=== PATIENT | female | born 1990 | race Caucasian/White ===

== ENCOUNTER 2018-12-22 12:59 | Inpatient (IN) | payer OTHER ==
[2018-12-22 14:13] LABS: Urine Appearance Clear; Urine Bilirubin Negative (Negative); Urine Blood Negative (Negative); Urine Color Straw; Urine Glucose Negative (Negative); Urine Ketones Negative (Negative); Urine Nitrite Negative (Negative); Urine Protein Negative (Negative); Urine Specific Gravity 1.006 (1.010-1.030); Urine Urobilinogen Negative (Negative)
[2018-12-22 14:19] LABS: ABS Eosinophils 0.1 10^3/ul (0-0.6); ABS Lymphocytes 2.2 10^3/ul (1.0-4.8); ABS Monocytes 0.3 10^3/ul (0-0.8); Eosinophil % 1.4 %; Hematocrit 35 % (35-47); Hemoglobin 12.1 g/dL (12.0-16.0); Lymphocyte % 47.7 %; Mean Corpuscular HGB Conc 34 g/dL (31-36); Mean Corpuscular Hemoglobin 33 pg (27-31); Mean Corpuscular Volume 97 fL (80-97); Mean Platelet Volume 9.5 fL (7.4-10.4); Platelet Count 153 10^3/uL (150-450); Red Blood Count 3.64 10^6 /uL (3.70-4.87); Red Cell Distribution Width 13 % (10.5-15); White Blood Count 4.7 10^3/uL (3.5-10.8)
[2018-12-22 14:29] LABS: Urine Benzodiazepine Screen None Detected (None Detect); Urine Opiates Screen None Detected (None Detect)
[2018-12-22 14:40] LABS: ALT 8 U/L (7-52); AST 17 U/L (13-39); Albumin 4.2 g/dL (3.2-5.2); Albumin/Globulin Ratio 2.1 (1-3); Alkaline Phosphatase 43 U/L (34-104); Anion Gap 5 mmol/L (2-11); Blood Urea Nitrogen 9 mg/dL (6-24); CO2 Carbon Dioxide 26 mmol/L (22-32); Calcium 9.3 mg/dL (8.6-10.3); Chloride 108 mmol/L (101-111); EGFR African American 177.8 (>60); EGFR Non-African American 146.9 (>60); Glucose 89 mg/dL (70-100); Potassium 4.3 mmol/L (3.5-5.0); Sodium 139 mmol/L (135-145); Total Protein 6.2 g/dL (6.4-8.9)
[2018-12-22 15:07] LABS: Acetaminophen < 15 mcg/mL; Alcohol < 10 mg/dL (<10); Salicylate < 2.50 mg/dL (<30)
[2018-12-22 15:20] LABS: TSH (Thyroid Stimulating Horm) 1.41 mcIU/mL (0.34-5.60)
[2018-12-22] MEDS ORDERED: Haloperidol TAB* 5 MG PO PRN (16:40)
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
[2018-12-22] MEDS ORDERED: Ketorolac INJ* 60 MG/2 ML VIAL IM ONE (17:35)
[2018-12-22] MEDS ORDERED: Al Hydrox/Mg Hydrox/Simet LIQ* 30 ML UDC PO PRN (19:55)
[2018-12-22] MEDS: LORazepam TAB(*) 1 MG PO PRN (20:56)
[2018-12-22] MEDS: Divalproex ER TAB(*) 500 MG PO SCH (21:23)
[2018-12-22] MEDS: levETIRAcetam TAB* 500 MG PO SCH (21:23)
[2018-12-22] MEDS: Nicotine Patch Removal NOTE PATCH OFF SCH (21:24)
[2018-12-23] MEDS: Nicotine PATCH 21 MG/24 HR* PATCH TRANSDERM SCH (10:07)
[2018-12-23] MEDS: LORazepam TAB(*) 1 MG PO PRN (10:12)
[2018-12-23] MEDS: levETIRAcetam TAB* 500 MG PO SCH (10:12)
[2018-12-23] MEDS: Vitamin THERAPEUTIC TAB PO SCH (10:13)
[2018-12-23] MEDS: Divalproex ER TAB(*) 500 MG PO SCH (10:14)
--- NOTE | 2018-12-23 15:59 | PN ---
BSU: Group Therapy Note - Service Type Service Type: [id number] Group Psychotherapy - Group Participation Patient Participating in Group: Yes Level of Group Participation: Attentive, Non-participatory Relatedness to Group: Paranoid - Gina was quiet but attentive. - Additional Group Comments Group Comments: Gina was attentive and quiet. She tolerated being in the group for a while, but later on, perhaps due to another group member whose behavior was difficult to tolerate, left early.
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
[2018-12-23] MEDS: Ibuprofen TAB* 600 MG PO PRN (19:20)
[2018-12-23] MEDS: Nicotine Patch Removal NOTE PATCH OFF SCH (19:22)
[2018-12-23] MEDS: risperiDONE-M * 1 MG TAB.ORADIS PO PRN (20:06)
[2018-12-24] MEDS: Nicotine PATCH 21 MG/24 HR* PATCH TRANSDERM SCH ×2 (06:15→09:01)
[2018-12-24] MEDS: Ibuprofen TAB* 600 MG PO PRN (06:15)
[2018-12-24 08:03] LABS: HDL Cholesterol 62.9 mg/dL
[2018-12-24] MEDS: levETIRAcetam TAB* 500 MG PO SCH (08:59)
[2018-12-24] MEDS: Vitamin THERAPEUTIC TAB PO SCH (09:00)
[2018-12-24] MEDS: Divalproex ER TAB(*) 500 MG PO SCH (09:00)
[2018-12-24] MEDS: diPHENhydraMINE PO* 50 MG PO PRN (10:30)
[2018-12-24] MEDS: traMADol TAB* 50 MG PO PRN (10:31)
[2018-12-24] MEDS: Acetaminophen TAB* 325 MG PO PRN (13:09)
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
[2018-12-24] MEDS: LORazepam TAB(*) 1 MG PO PRN (16:20)
[2018-12-24] MEDS: Nicotine Patch Removal NOTE PATCH OFF SCH (20:49)
[2018-12-24] MEDS ORDERED: risperiDONE TAB* 1 MG PO SCH (21:00)
[2018-12-25] MEDS: Ibuprofen TAB* 600 MG PO PRN ×2 (01:35→08:51)
[2018-12-25] MEDS: LORazepam TAB(*) 1 MG PO PRN ×2 (02:05→10:00)
[2018-12-25] MEDS: traMADol TAB* 50 MG PO PRN (02:05)
[2018-12-25] MEDS: Divalproex ER TAB(*) 500 MG PO SCH (08:22)
[2018-12-25] MEDS: levETIRAcetam TAB* 500 MG PO SCH ×2 (08:22→21:55)
[2018-12-25] MEDS: Vitamin THERAPEUTIC TAB PO SCH (08:23)
[2018-12-25] MEDS: Nicotine PATCH 21 MG/24 HR* PATCH TRANSDERM SCH (08:46)
--- NOTE | 2018-12-25 13:54 | PN ---
Subjective - Subjective Date of Service: 12/25/18 Service Type: [id number] Hosp care 25 min moderate complexity Subjective: Gina remains disorganized. She seems confused about the situation she is in and does not respond logically to having things explained to her. She would like to be discharged, but she is not at the baseline that was established when I spoke to her adoptive mother, Glendy. Although Glendy indicated that Gina behaves in a manner younger than her age, Gina is behaving in a childish way that includes lack of comprehension of situation and inability to follow along with a conversation. Gina came in on doses of Keppra and Depakote that are different from what Glendy indicated that they were listed on the bottle. Keppra she is reported to take 500 mg QAM and 1000 mg at Bedtime. Depakote ER 500 mg BID is also prescribed. There is a note in the ED chart that she has lowered the Depakote due to having toxic levels. When a level was obtained here, it was approximately 60, so the 500 mg dose once a day is continued. It was unclear how long she had not been on Keppra, so a quick titration up was started today. Objective - General Observations Appearance: Disheveled Appears Stated Age: Yes Stature: Thin Posture: Tense Eye Contact: Intermittent Behavior/Activity: Peculiar - Interaction Observations Attitude Towards Examiner: Anxious, Confused, Demanding, Mistrustful Stated Mood: Dysphoric, Anxious, Angry Affect: Labile Speech Pattern/Tone: Clear, Rambling Thought Process: Disorganized, Loose Associations, Tangential Perception: WNL Thought Content: Preoccupation/Ruminations Hallucination Type: Denies Delusion Type: Denies - Cognitive Function Orientation: Person, Place, Time Level of Consciousness: Awake, Alert, Appropriate Cognition: Impaired Cognition, Impaired Attention/Concentration Estimated Intelligence: Borderline Range Insight: Difficulty Acknowledging Presence of Psyciatric Problems Judgment Within Normal Limits: No Ability to Make Reasonable Decisions: Serverely Impaired - Medication Compliance Cooperative with Inpatient Medication Regimen: Yes - Group Participation Participates in Group Activities: Partial Assessment - Assessment Merits Inpatient Hospitalization: For Immediate Safety Clinical Impression: Gina is a 28-year-old white woman with no history of mental illness who comes to the hospital following bizarre thoughts and high paranoia including thoughts that her will assault her and she must hide from him. Plan - Plan Treatment Plan: Name: GINA JARAMILLO Birthdate: 1990 [id number] Gina is on increased Risperdal tonight. She has not made progress since her admission. Allowing Gina to have time to clear will be important. Continued Medication Management: Different Medication Medications: Current Medications Acetaminophen (Tylenol Tab*) 650 mg PO Q4H PRN PRN Reason: PAIN or TEMP > 101 F Last Admin: 12/24/18 13:09 Dose: 650 mg Al Hydrox/Mg Hydrox/Simethicone (Maalox Plus*) 30 ml PO Q4H PRN PRN Reason: INDIGESTION Diphenhydramine HCl (Benadryl Po*) 50 mg PO Q6H PRN PRN Reason: ITCHING Last Admin: 12/24/18 10:30 Dose: 50 mg Divalproex Sodium (Depakote Er Tab(*)) 500 mg PO DAILY [facility] Last Admin: 12/25/18 08:22 Dose: 500 mg Hydroxyzine HCl (Atarax Tab*) 50 mg PO Q4H PRN PRN Reason: Anxiety/agitation/insomnia Ibuprofen (Motrin Tab*) 600 mg PO Q6H PRN PRN Reason: PAIN Last Admin: 12/25/18 08:51 Dose: 600 mg Levetiracetam (Keppra Tab*) 500 mg PO BID [facility] Stop: 12/28/18 00:30 Levetiracetam (Keppra Tab*) 500 mg PO DAILY [facility] Levetiracetam (Keppra Tab*) 1,000 mg PO BEDTIME [facility] Lorazepam (Ativan Tab(*)) 1 mg PO Q6H PRN PRN Reason: AGITATION Last Admin: 12/25/18 10:00 Dose: 1 mg Multivitamins (Theragran Tab*) 1 tab PO DAILY [facility] Last Admin: 12/25/18 08:23 Dose: 1 tab Nicotine (Nicotine Patch 21 Mg/24 Hr*) 1 patch TRANSDERM DAILY [facility] Last Admin: 12/25/18 08:46 Dose: Not Given Nicotine Polacrilex (Nicotine Gum*) 2 mg PO Q2H PRN PRN Reason: CRAVINGS Pharmacy Profile Note (Nicotine Patch Removal Note*) 1 note PATCH OFF 2100 [facility] Last Admin: 12/24/18 20:49 Dose: 1 note Risperidone (Risperdal-M Tab *) 2 mg PO Q6H PRN; Protocol PRN Reason: AGITATION Last Admin: 12/23/18 20:06 Dose: 2 mg Risperidone (Risperdal*) 2 mg PO BEDTIME [facility] Tramadol HCl (Ultram*) 50 mg PO Q6H PRN PRN Reason: PAIN Last Admin: 12/25/18 02:05 Dose: 50 mg - Discharge Plan Discharge Plan: Outpatient Follow Up
[2018-12-25] MEDS: hydrOXYzine HCL TAB* 50 MG PO PRN ×2 (15:26→21:55)
[2018-12-25] MEDS: Nicotine PATCH 7 MG/24 HR* PATCH TRANSDERM SCH (15:27)
[2018-12-25] MEDS: Nicotine Patch Removal NOTE FOLLOW UP SCH (21:57)
[2018-12-25] MEDS: risperiDONE TAB* 1 MG PO SCH (21:57)
[2018-12-26] MEDS: Divalproex ER TAB(*) 500 MG PO SCH (07:53)
[2018-12-26] MEDS: levETIRAcetam TAB* 500 MG PO SCH ×2 (07:53→19:54)
[2018-12-26] MEDS: Acetaminophen TAB* 325 MG PO PRN (08:43)
[2018-12-26] MEDS: Nicotine PATCH 7 MG/24 HR* PATCH TRANSDERM SCH ×2 (08:55→10:05)
[2018-12-26] MEDS: Vitamin THERAPEUTIC TAB PO SCH (08:55)
[2018-12-26] MEDS: Ibuprofen TAB* 600 MG PO PRN (08:56)
[2018-12-26] MEDS: traMADol TAB* 50 MG PO PRN (15:19)
[2018-12-26] MEDS: Nicotine Patch Removal NOTE FOLLOW UP SCH (20:40)
[2018-12-26] MEDS: risperiDONE TAB* 1 MG PO SCH (20:43)
[2018-12-27] MEDS: hydrOXYzine HCL TAB* 50 MG PO PRN (04:24)
[2018-12-27] MEDS: traMADol TAB* 50 MG PO PRN ×2 (08:39→16:00)
[2018-12-27] MEDS: levETIRAcetam TAB* 500 MG PO SCH ×2 (08:40→21:04)
[2018-12-27] MEDS: Divalproex ER TAB(*) 500 MG PO SCH (08:40)
[2018-12-27] MEDS: Nicotine PATCH 7 MG/24 HR* PATCH TRANSDERM SCH (08:41)
[2018-12-27] MEDS: Vitamin THERAPEUTIC TAB PO SCH (08:42)
[2018-12-27] MEDS: LORazepam TAB(*) 1 MG PO PRN (15:30)
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
[2018-12-27] MEDS: risperiDONE TAB* 1 MG PO SCH (21:05)
[2018-12-27] MEDS: Nicotine Patch Removal NOTE FOLLOW UP SCH (21:05)
[2018-12-28] MEDS: Divalproex ER TAB(*) 500 MG PO SCH (08:47)
[2018-12-28] MEDS: Vitamin THERAPEUTIC TAB PO SCH (08:47)
[2018-12-28] MEDS: Nicotine PATCH 7 MG/24 HR* PATCH TRANSDERM SCH (08:48)
[2018-12-28] MEDS: levETIRAcetam TAB* 500 MG PO SCH ×2 (08:48→21:42)
[2018-12-28] MEDS: LORazepam TAB(*) 1 MG PO PRN (09:49)
[2018-12-28] MEDS ORDERED: chlorproMAZINE TAB* 100 MG ONE (10:26)
[2018-12-28] MEDS ORDERED: chlorproMAZINE TAB* 100 MG PO ONE (12:29)
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
[2018-12-28] MEDS: risperiDONE-M * 1 MG TAB.ORADIS PO PRN (15:50)
[2018-12-28] MEDS: hydrOXYzine HCL TAB* 50 MG PO PRN (15:50)
[2018-12-28] MEDS: traMADol TAB* 50 MG PO PRN (19:23)
[2018-12-28] MEDS: risperiDONE TAB* 1 MG PO SCH (21:42)
[2018-12-28] MEDS: Nicotine Patch Removal NOTE FOLLOW UP SCH (22:33)
[2018-12-29] MEDS: risperiDONE-M * 1 MG TAB.ORADIS PO PRN (06:39)
[2018-12-29] MEDS: hydrOXYzine HCL TAB* 50 MG PO PRN (06:39)
[2018-12-29] MEDS: Nicotine PATCH 7 MG/24 HR* PATCH TRANSDERM SCH (09:27)
[2018-12-29] MEDS: Vitamin THERAPEUTIC TAB PO SCH ×2 (09:28→09:30)
[2018-12-29] MEDS: Divalproex ER TAB(*) 500 MG PO SCH (09:28)
[2018-12-29] MEDS: levETIRAcetam TAB* 500 MG PO SCH ×2 (09:28→19:48)
[2018-12-29] MEDS: risperiDONE TAB* 1 MG PO SCH ×2 (11:13→19:49)
[2018-12-29] MEDS ORDERED: Bisacodyl EC TAB* 5 MG PO ONE (13:12)
--- NOTE | 2018-12-29 15:49 | PN ---
Subjective - Subjective Date of Service: 12/29/18 Service Type: [id number] Hosp care 25 min moderate complexity Subjective: Gina is less disorganized, but the first thing she said today in reply to " How are you?" was "I'm getting rid of pinks," indicating a jacket she decided she didn't like. She was not able to indicate that it was the jacket she was getting rid of, only the color. Gina is a little irritable and paranoid, being annoyed by another patient who she thinks is spying on her while bouncing a ball. Gina's solution to this is to get a fidget spinner. She had odd thoughts regarding what her bio mother might have done with her own fidget spinners at home. In short, Gina is pleasant and eager to spend time chatting with people, but is also strange and suspicious at times as well as disorganized in thinking. Objective - General Observations Appearance: Disheveled Appears Stated Age: Yes Stature: Thin Posture: WNL Eye Contact: Average Behavior/Activity: Peculiar - Interaction Observations Attitude Towards Examiner: Cooperative, Mistrustful Stated Mood: Euthymic Affect: Full Speech Pattern/Tone: Clear Thought Process: Disorganized, Filght of Ideas Perception: WNL Thought Content: Paranoid Hallucination Type: Denies Delusion Type: Denies, Persecution, Somatic - Cognitive Function Orientation: A&O x 4 Level of Consciousness: Awake, Alert, Appropriate Cognition: Impaired Cognition, Impaired Ability to Abstract Estimated Intelligence: Borderline Range Insight: Difficulty Acknowledging Presence of Psyciatric Problems Judgment Within Normal Limits: No Ability to Make Reasonable Decisions: Moderately Impaired - Medication Compliance Cooperative with Inpatient Medication Regimen: Yes - Group Participation Participates in Group Activities: Yes Assessment - Assessment Merits Inpatient Hospitalization: For Immediate Safety Inpatient DSM-V Dx: F29 Clinical Impression: Gina is a 28-year-old white woman with no history of mental illness who comes to the hospital following bizarre thoughts and high paranoia including thoughts that her will assault her and she must hide from him. Ongoing impairing psychotic symptoms. Plan - Plan Treatment Plan: Name: GINA JARAMILLO Birthdate: 1990 [id number] Gina is on increased Risperdal tonight. She has not made progress since her admission. Allowing Gina to have time to clear will be important. 12/29/18 Gina's Risperdal is increasing today to 1 mg QAM and 2 mg QHS. Gina is agreeable. A Depakote level will be obtained tomorrow. Continued Medication Management: Different Medication Medications: Current Medications Acetaminophen (Tylenol Tab*) 650 mg PO Q4H PRN PRN Reason: PAIN or TEMP > 101 F Last Admin: 12/26/18 08:43 Dose: 650 mg Al Hydrox/Mg Hydrox/Simethicone (Maalox Plus*) 30 ml PO Q4H PRN PRN Reason: INDIGESTION Diphenhydramine HCl (Benadryl Po*) 50 mg PO Q6H PRN PRN Reason: ITCHING Last Admin: 12/24/18 10:30 Dose: 50 mg Divalproex Sodium (Depakote Er Tab(*)) 500 mg PO DAILY [facility] Last Admin: 12/29/18 09:28 Dose: 500 mg Hydroxyzine HCl (Atarax Tab*) 50 mg PO Q4H PRN PRN Reason: Anxiety/agitation/insomnia Last Admin: 12/29/18 06:39 Dose: 50 mg Ibuprofen (Motrin Tab*) 600 mg PO Q6H PRN PRN Reason: PAIN Last Admin: 12/26/18 08:56 Dose: 600 mg Levetiracetam (Keppra Tab*) 500 mg PO DAILY [facility] Last Admin: 12/29/18 09:28 Dose: 500 mg Levetiracetam (Keppra Tab*) 1,000 mg PO BEDTIME [facility] Last Admin: 12/28/18 21:42 Dose: 1,000 mg Lorazepam (Ativan Tab(*)) 1 mg PO Q6H PRN PRN Reason: AGITATION Last Admin: 12/28/18 09:49 Dose: 1 mg Multivitamins (Theragran Tab*) 1 tab PO DAILY [facility] Last Admin: 12/29/18 09:30 Dose: Not Given Nicotine (Nicotine Patch 7 Mg/24 Hr*) 1 patch TRANSDERM DAILY [facility] Last Admin: 12/29/18 09:27 Dose: Not Given Nicotine Polacrilex (Nicotine Gum*) 2 mg PO Q2H PRN PRN Reason: CRAVINGS Pharmacy Profile Note (Nicotine Patch Removal Note*) 1 note FOLLOW UP 2100 [facility] Last Admin: 12/28/18 22:33 Dose: 1 note Risperidone (Risperdal-M Tab *) 2 mg PO Q6H PRN; Protocol PRN Reason: AGITATION Last Admin: 12/29/18 06:39 Dose: 2 mg Risperidone (Risperdal*) 2 mg PO BEDTIME [facility] Last Admin: 12/28/18 21:42 Dose: 2 mg Risperidone (Risperdal*) 1 mg PO DAILY [facility] Last Admin: 12/29/18 11:13 Dose: 1 mg Tramadol HCl (Ultram*) 50 mg PO Q6H PRN PRN Reason: PAIN Last Admin: 12/28/18 19:23 Dose: 50 mg - Discharge Plan Discharge Plan: Outpatient Follow Up
[2018-12-29] MEDS: Nicotine Patch Removal NOTE FOLLOW UP SCH (19:49)
[2018-12-29] MEDS: diPHENhydraMINE PO* 50 MG PO PRN (21:39)
[2018-12-30] MEDS: Ibuprofen TAB* 600 MG PO PRN (01:27)
[2018-12-30] MEDS: hydrOXYzine HCL TAB* 50 MG PO PRN (01:27)
[2018-12-30] MEDS ORDERED: Docusate CAP* 100 MG PO PRN (10:03)
[2018-12-30] MEDS: levETIRAcetam TAB* 500 MG PO SCH ×2 (10:04→20:03)
[2018-12-30] MEDS: Divalproex ER TAB(*) 500 MG PO SCH (10:04)
[2018-12-30] MEDS: Vitamin THERAPEUTIC TAB PO SCH ×2 (10:04→10:06)
[2018-12-30] MEDS: risperiDONE TAB* 1 MG PO SCH ×2 (10:04→22:03)
[2018-12-30] MEDS: Nicotine PATCH 7 MG/24 HR* PATCH TRANSDERM SCH (10:06)
[2018-12-30] MEDS: Divalproex ER TAB(*) 250 MG PO SCH (11:59)
[2018-12-30] MEDS: Acetaminophen TAB* 325 MG PO PRN ×2 (15:24→20:05)
[2018-12-30] MEDS: Nicotine Patch Removal NOTE FOLLOW UP SCH (20:36)
[2018-12-31] MEDS: Ibuprofen TAB* 600 MG PO PRN (04:45)
[2018-12-31] MEDS: Acetaminophen TAB* 325 MG PO PRN ×2 (07:29→17:47)
[2018-12-31] MEDS: Divalproex ER TAB(*) 500 MG PO SCH (08:49)
[2018-12-31] MEDS: Divalproex ER TAB(*) 250 MG PO SCH (08:49)
[2018-12-31] MEDS: Vitamin THERAPEUTIC TAB PO SCH (08:50)
[2018-12-31] MEDS: risperiDONE TAB* 1 MG PO SCH ×2 (08:50→21:16)
[2018-12-31] MEDS: levETIRAcetam TAB* 500 MG PO SCH ×2 (08:50→21:16)
[2018-12-31] MEDS: Nicotine PATCH 7 MG/24 HR* PATCH TRANSDERM SCH (08:52)
[2018-12-31] MEDS: traMADol TAB* 50 MG PO PRN (20:32)
[2018-12-31] MEDS: Nicotine Patch Removal NOTE FOLLOW UP SCH (21:49)
[2019-01-01] MEDS: Ibuprofen TAB* 600 MG PO PRN ×2 (02:50→21:33)
[2019-01-01] MEDS: hydrOXYzine HCL TAB* 50 MG PO PRN (02:50)
[2019-01-01] MEDS: traMADol TAB* 50 MG PO PRN ×2 (06:05→15:47)
[2019-01-01] MEDS: Acetaminophen TAB* 325 MG PO PRN (08:24)
[2019-01-01] MEDS: Divalproex ER TAB(*) 500 MG PO SCH (08:24)
[2019-01-01] MEDS: risperiDONE TAB* 1 MG PO SCH ×2 (08:25→20:01)
[2019-01-01] MEDS: Divalproex ER TAB(*) 250 MG PO SCH (08:25)
[2019-01-01] MEDS: levETIRAcetam TAB* 500 MG PO SCH ×2 (08:25→20:00)
[2019-01-01] MEDS: Vitamin THERAPEUTIC TAB PO SCH (08:26)
[2019-01-01] MEDS: Nicotine PATCH 7 MG/24 HR* PATCH TRANSDERM SCH (08:28)
[2019-01-01] MEDS ORDERED: Albuterol HFA INHALER* 8 gm MDI INH PRN (10:02)
[2019-01-01] MEDS: LORazepam TAB(*) 0.5 MG PO PRN ×2 (15:47→20:00)
--- NOTE | 2019-01-01 17:43 | PN ---
Subjective - Subjective Date of Service: 01/01/19 Service Type: [id number] Hosp care 15 min low complexity Subjective: Gina is improving. She is more organized and remains pleasant. Her original presentation which included sentences that trailed off as well as circumstantial speech has changed to more relevant and clear conversation. She is compliant with medications. Glendy the "adoptive" mom is still uncertain of Gina's progress, but Glendy's reliability is coming into question at the same time as Gina's clarity is improving. Objective - General Observations Appearance: Disheveled Appears Stated Age: Yes Stature: Thin Posture: WNL Eye Contact: Average Behavior/Activity: WNL - Interaction Observations Attitude Towards Examiner: Cooperative Stated Mood: Euthymic Affect: Bright Speech Pattern/Tone: Clear Thought Process: Coherent Perception: WNL Thought Content: Preoccupation/Ruminations, Paranoid Hallucination Type: None Delusion Type: Denies, Persecution - Cognitive Function Orientation: A&O x 4 Level of Consciousness: Awake, Alert, Appropriate Cognition: WNL Estimated Intelligence: Borderline Range Insight: Difficulty Acknowledging Presence of Psyciatric Problems Judgment Within Normal Limits: No Ability to Make Reasonable Decisions: Mildly Impaired - Medication Compliance Cooperative with Inpatient Medication Regimen: Yes - Group Participation Participates in Group Activities: Yes Assessment - Assessment Inpatient DSM-V Dx: F29 Clinical Impression: Gina is a 28-year-old white woman with no history of mental illness who comes to the hospital following bizarre thoughts and high paranoia including thoughts that her will assault her and she must hide from him. Ongoing impairing psychotic symptoms. Plan - Plan Treatment Plan: Name: GINA JARAMILLO Birthdate: 1990 [id number] Gina is on increased Risperdal tonight. She has not made progress since her admission. Allowing Gina to have time to clear will be important. 12/29/18 Gerrys Risperdal is increasing today to 1 mg QAM and 2 mg QHS. Gina is agreeable. A Depakote level will be obtained tomorrow. 12/31/18 Gina's Depakote level was 50. Her Depakote dose was increased from 500 mg daily to 750 mg. She has experienced some seizure activity including while here including falling on the mat next to her bed and having some eye fluttering, which she is aware of and doesn't bother her. Risperdal will remain at 3 mg total. We are looking to discharge next week. Medications: Current Medications Acetaminophen (Tylenol Tab*) 650 mg PO Q4H PRN PRN Reason: PAIN or TEMP > 101 F Last Admin: 01/01/19 08:24 Dose: 650 mg Al Hydrox/Mg Hydrox/Simethicone (Maalox Plus*) 30 ml PO Q4H PRN PRN Reason: INDIGESTION Albuterol (Ventolin Hfa Inhaler*) 2 puff INH Q2H PRN PRN Reason: SOB/WHEEZING Diphenhydramine HCl (Benadryl Po*) 50 mg PO Q6H PRN PRN Reason: ITCHING Last Admin: 12/29/18 21:39 Dose: 50 mg Divalproex Sodium (Depakote Er Tab(*)) 500 mg PO DAILY [facility] Last Admin: 01/01/19 08:24 Dose: 500 mg Divalproex Sodium (Depakote Er Tab(*)) 250 mg PO DAILY [facility] Last Admin: 01/01/19 08:25 Dose: 250 mg Docusate Sodium (Colace Cap*) 100 mg PO BID PRN PRN Reason: CONSTIPATION Hydroxyzine HCl (Atarax Tab*) 50 mg PO Q4H PRN PRN Reason: Anxiety/agitation/insomnia Last Admin: 01/01/19 02:50 Dose: 50 mg Ibuprofen (Motrin Tab*) 600 mg PO Q6H PRN PRN Reason: PAIN Last Admin: 01/01/19 02:50 Dose: 600 mg Levetiracetam (Keppra Tab*) 500 mg PO DAILY [facility] Last Admin: 01/01/19 08:25 Dose: 500 mg Levetiracetam (Keppra Tab*) 1,000 mg PO BEDTIME [facility] Last Admin: 12/31/18 21:16 Dose: 1,000 mg Lorazepam (Ativan Tab(*)) 0.25 mg PO Q4H PRN PRN Reason: agitation/restlessness/anxiety Last Admin: 01/01/19 15:47 Dose: 0.25 mg Multivitamins (Theragran Tab*) 1 tab PO DAILY [facility] Last Admin: 01/01/19 08:26 Dose: 1 tab Nicotine (Nicotine Patch 7 Mg/24 Hr*) 1 patch TRANSDERM DAILY [facility] Last Admin: 01/01/19 08:28 Dose: Not Given Nicotine Polacrilex (Nicotine Gum*) 2 mg PO Q2H PRN PRN Reason: CRAVINGS Pharmacy Profile Note (Nicotine Patch Removal Note*) 1 note FOLLOW UP [facility]100 [facility] Last Admin: 12/31/18 21:49 Dose: Not Given Risperidone (Risperdal-M Tab *) 2 mg PO Q6H PRN; Protocol PRN Reason: AGITATION Last Admin: 12/29/18 06:39 Dose: 2 mg Risperidone (Risperdal*) 2 mg PO BEDTIME [facility] Last Admin: 12/31/18 21:16 Dose: 2 mg Risperidone (Risperdal*) 1 mg PO DAILY [facility] Last Admin: 01/01/19 08:25 Dose: 1 mg Tramadol HCl (Ultram*) 50 mg PO Q6H PRN PRN Reason: PAIN Last Admin: 01/01/19 15:47 Dose: 50 mg
[2019-01-01] MEDS: Nicotine Patch Removal NOTE FOLLOW UP SCH (20:05)
[2019-01-02] MEDS: traMADol TAB* 50 MG PO PRN ×2 (00:52→20:07)
[2019-01-02] MEDS: LORazepam TAB(*) 0.5 MG PO PRN (00:53)
[2019-01-02] MEDS: Divalproex ER TAB(*) 250 MG PO SCH (09:20)
[2019-01-02] MEDS: Divalproex ER TAB(*) 500 MG PO SCH (09:20)
[2019-01-02] MEDS: risperiDONE TAB* 1 MG PO SCH ×2 (09:21→20:07)
[2019-01-02] MEDS: levETIRAcetam TAB* 500 MG PO SCH ×2 (09:21→20:10)
[2019-01-02] MEDS: Nicotine PATCH 7 MG/24 HR* PATCH TRANSDERM SCH (09:28)
[2019-01-02] MEDS: Vitamin THERAPEUTIC TAB PO SCH (09:28)
[2019-01-02] MEDS: hydrOXYzine HCL TAB* 50 MG PO PRN (19:07)
[2019-01-02] MEDS: Nicotine Patch Removal NOTE FOLLOW UP SCH (21:48)
[2019-01-03] MEDS: LORazepam TAB(*) 0.5 MG PO PRN ×2 (06:11→17:13)
[2019-01-03] MEDS: Acetaminophen TAB* 325 MG PO PRN (06:11)
[2019-01-03] MEDS: Nicotine PATCH 7 MG/24 HR* PATCH TRANSDERM SCH (08:14)
[2019-01-03] MEDS: Divalproex ER TAB(*) 500 MG PO SCH (08:41)
[2019-01-03] MEDS: Divalproex ER TAB(*) 250 MG PO SCH (08:41)
[2019-01-03] MEDS: risperiDONE TAB* 1 MG PO SCH ×2 (08:42→20:19)
[2019-01-03] MEDS: levETIRAcetam TAB* 500 MG PO SCH ×2 (08:42→20:20)
[2019-01-03] MEDS: Vitamin THERAPEUTIC TAB PO SCH (08:42)
[2019-01-03] MEDS: risperiDONE-M * 1 MG TAB.ORADIS PO PRN (15:21)
[2019-01-03] MEDS: Nicotine* 2MG (FRUIT FLAVOR) GUM PO PRN (15:31)
[2019-01-03] MEDS: Nicotine Patch Removal NOTE FOLLOW UP SCH (20:22)
[2019-01-03] MEDS: traMADol TAB* 50 MG PO PRN (22:26)
[2019-01-04] MEDS: LORazepam TAB(*) 0.5 MG PO PRN ×2 (03:11→16:05)
[2019-01-04] MEDS: Acetaminophen TAB* 325 MG PO PRN ×2 (03:11→11:07)
[2019-01-04] MEDS: Divalproex ER TAB(*) 500 MG PO SCH (09:30)
[2019-01-04] MEDS: levETIRAcetam TAB* 500 MG PO SCH ×2 (09:30→20:53)
[2019-01-04] MEDS: Nicotine* 2MG (FRUIT FLAVOR) GUM PO PRN (09:30)
[2019-01-04] MEDS: Divalproex ER TAB(*) 250 MG PO SCH (09:30)
[2019-01-04] MEDS: Nicotine PATCH 7 MG/24 HR* PATCH TRANSDERM SCH (09:30)
[2019-01-04] MEDS: risperiDONE TAB* 1 MG PO SCH ×2 (09:30→23:00)
[2019-01-04] MEDS: Vitamin THERAPEUTIC TAB PO SCH (09:32)
[2019-01-04] MEDS: hydrOXYzine HCL TAB* 50 MG PO PRN (10:15)
[2019-01-04] MEDS ORDERED: Nicotine Lozenge* mini 2 MG LOZNG.MINI MT PRN (13:00)
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
[2019-01-04] MEDS: risperiDONE-M * 1 MG TAB.ORADIS PO PRN (19:40)
[2019-01-04] MEDS: Nicotine Patch Removal NOTE FOLLOW UP SCH (20:50)
[2019-01-04] MEDS: traMADol TAB* 50 MG PO PRN (22:35)
[2019-01-05] MEDS: risperiDONE-M * 1 MG TAB.ORADIS PO PRN (03:00)
[2019-01-05] MEDS: hydrOXYzine HCL TAB* 50 MG PO PRN (06:37)
[2019-01-05] MEDS: Acetaminophen TAB* 325 MG PO PRN (07:53)
[2019-01-05] MEDS: Divalproex ER TAB(*) 500 MG PO SCH (07:56)
[2019-01-05] MEDS: Vitamin THERAPEUTIC TAB PO SCH (07:56)
[2019-01-05] MEDS: Divalproex ER TAB(*) 250 MG PO SCH (07:56)
[2019-01-05] MEDS: levETIRAcetam TAB* 500 MG PO SCH (07:57)
[2019-01-05] MEDS: risperiDONE TAB* 1 MG PO SCH (07:57)
[2019-01-05] MEDS: Nicotine PATCH 7 MG/24 HR* PATCH TRANSDERM SCH (07:58)
[2019-01-05 10:40] VITALS: BP 110/69
[2019-01-05] MEDS: LORazepam TAB(*) 0.5 MG PO PRN (11:20)
--- NOTE | 2019-01-05 23:16 | DS ---
CC: [facility] DISCHARGE SUMMARY: ADDENDUM: Her hemoglobin A1c was 5.2. Triglycerides were 77, cholesterol 152, LDL cholesterol 74, HDL cholesterol 62.9. TSH was 1.41. All other lab values were within healthy limits. It should be noted that her Keppra level on was low at 6.4. Her valproic acid level on 12/30/18 was 50. Her cannabinoid screen was positive. Her adoptive mother, Shen, was spoken with several times during Gina's admission. Shen is likely not a good historian and, therefore a family meeting was not required with her and her , Zaheer. Upon their arrival to take Gina home, they were questioning whether she was going to get pain medication or benzodiazepines and she was getting neither prescribed from here. No consults were entered, although there were several messages to nutrition and dinning. She is significantly improved. She is no longer psychotic. Her sentences are making sense. Her thought processes are within reasonable limits. She is future oriented and is eager to get home to her dog as well as to have specific foods she has requested and interestingly spearmint gum, which she states will help her quit smoking. MAIK PARK, RACIEL [id number]/[facility] #: [id number] [place]
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
== END 2019-01-05 12:19 | disposition home or self-care (01) | DRG 751 ==
LOC: ED 12:59 → BSU 17:55
PROVIDERS: ADMIT Psychiatry & Neurology Psychiatry; ATTEND Psychiatry & Neurology Psychiatry
PROC: GZHZZZZ Group Psychotherapy (ICD-10-PCS; principal; 2018-12-23)
DX: F29 Unspecified psychosis not due to a substance or known physiological condition (principal); G40.909 Epilepsy, unspecified, not intractable, without status epilepticus; M41.86 Other forms of scoliosis, lumbar region; F17.210 Nicotine dependence, cigarettes, uncomplicated; Z88.5 Allergy status to narcotic agent; Z88.0 Allergy status to penicillin; Z82.0 Family history of epilepsy and other diseases of the nervous system; Z81.8 Family history of other mental and behavioral disorders; Z91.419 Personal history of unspecified adult abuse
CPT/HCPCS: 36415; 72100; 80053; 80061; 80164; 80177; 80307; 80320; 80329; 81003; 83036; 84443; 85025; 99222; 99231; 99232; 99238; 99284; A9270-GY; G0480; J1885